=== PATIENT | female | born 1975 | race Caucasian/White ===

== ENCOUNTER → 2020-05-28 | Outpatient (CLI) | payer OTHER ==
--- NOTE | 2020-05-28 14:24 | EST ---
EXERCISE STRESS DATE OF SERVICE: 05/28/2020 AGE: 44 SEX: Female HT: 5'2" WT: 125 lbs. PROTOCOL: Tyree. STAGE: 5 DURATION OF EXERCISE: 13 minutes HEART RATE REST: 68 BLOOD PRESSURE REST: 114/81 MAXIMUM HEART RATE ACHIEVED: 184 MAXIMUM BLOOD PRESSURE: 197/68. 85% MPHR: 151 100% MPHR: 178 METS: 13.9 INDICATIONS: Chest pain CLINICAL INFORMATION: STRESS DATA: Pretesting physical examination showed a heart rate of 68, pressure is 114/81 mmHg. Baseline EKG showed sinus mechanism. The patient exercised on the treadmill according to Tyree protocol for 13 minutes and achieved 13.9 METs. Max heart rate was 184 and maximum pressure was 197/68 mmHg. Clinically the patient did not have any symptoms and the EKG did not show any significant ST or T-wave abnormalities concerning for ischemia. CONCLUSION: 1. Excellent exercise tolerance. 2. Normal EKG in response to exercise. 3. Essentially normal stress test for the patient. MMODL / IJN: [id number] /
== END | disposition home or self-care (01) ==
LOC: RADNMMAIN 08:57
PROVIDERS: ATTEND Family Medicine
DX: R07.89 Other chest pain (principal)
CPT/HCPCS: 93017